=== PATIENT | male | born 1965 | race African-American/Black ===

== ENCOUNTER → 2016-07-13 | Outpatient (CLI) | payer BC ==
--- NOTE | 2016-07-13 15:38 | CR ---
EXAMINATION: Right shoulder HISTORY: Pain COMPARISON: None TECHNIQUE: 3 views FINDINGS/IMPRESSION: There is no acute osseous abnormality, dislocation, or fracture. Bone mineraliz ation and joint spaces appear normal.
== END ==
LOC: MW.CHFP 10:11
PROVIDERS: ATTEND Nurse Practitioner Family
DX: M25.511 Pain in right shoulder (principal)
CPT/HCPCS: 73030-26-RT; 73030-RT

== ENCOUNTER 2016-11-02 16:38 | Observation (INO) | payer BC ==
[2016-11-02] MEDS ORDERED: Sodium Chloride 0.9% 1,000 ML IV ONE ×3 (17:00→19:55)
[2016-11-02] MEDS ORDERED: Insulin Regular, Human 100 Units/ML 10 ML Vial IVPUSH ONE (17:01)
[2016-11-02] MEDS ORDERED: Aspirin 81 MG Tab.Chew PO ONE (17:25)
[2016-11-02] MEDS ORDERED: Sodium Chloride 0.9% 10 ML Syringe FLUSH PRN (19:18)
[2016-11-02] MEDS ORDERED: Sodium Chloride 0.9% 2.5 ML Syringe FLUSH PRN (19:18)
[2016-11-02] MEDS ORDERED: Acetaminophen 325 MG Tab PO PRN (19:18)
--- NOTE | 2016-11-02 20:39 | PCM.HP ---
H&P History of Present Illness - General Date of Service: 11/02/16 Admit Problem/Dx: Admission Diagnosis/Problem Admission Diagnosis/Problem Uncontrolled diabetes mellitus Source of Information: Patient History Limitations: Reports: No Limitations - History of Present Illness Initial Comments - Free Text/Narative: This is a 51-year-old male who is presenting secondary to dehydration and hyperglycemia and chest discomfort. Jonny works here at [facility] [employer] [facility] he was recently diagnosed 2 days ago with type 2 diabetes mellitus. He then was referred to a specialist who put Jonny on long-acting insulin 16 units at bedtime. Jonny noticed this morning that his blood sugar was still elevated despite his 16 units and called the diabetic nurse practitioner who told the patient that he will increase his long-acting insulin to 20 units. At the day. Her only had lunch and around 2 PM finish work. Went home with his coworkers, his coworkers noticed that he was driving a little erratic and felt that there was something wrong with Jonny. They brought him into the ER where it was found that he was severely dehydrated and had a initial blood glucose level of about 600. He was then also complaining of some arm discomfort and pain and there was a possible concern for an OR related event an EKG was done which did show some old possible changes for which cardiology was consulted who did see the patient and felt that there is nothing acute that needed to be done. From the standpoint of his elevated glucose of about 600 he was not acidotic. He received 6 units of Novolin in the ER along with 1 L bolus of normal saline. A CT in September was also ordered to rule out PE. He is denying presently any headaches any shortness of breath any nausea or vomiting any diarrhea or constipation. He is denying any present pain or any present chest discomfort. He is stating that he is quite thirsty and quite hungry at the moment. But does feel a lot better than when he initially presented to the ER. - Related Data Allergies/Adverse Reactions: Allergies Allergy/AdvReac Type Severity Reaction Status Date / Time No Known Allergies Allergy Verified 04/15/15 12:45 Home Medications: Home Meds atorvaSTATin Calcium [Atorvastatin Calcium] 10 mg PO DAILY 07/12/14 [History] Clopidogrel [Plavix] 75 mg PO DAILY #30 tablet 07/13/14 [Rx] Hydrochlorothiazide 25 mg PO DAILY #30 tablet 07/13/14 [Rx] Diltiazem HCl [Diltiazem 24Hr ER] 240 mg PO DAILY 09/19/14 [History] Ferrous Sulfate [Iron] 325 mg PO DAILY 09/19/14 [History] Lisinopril 1 tab PO DAILY 09/19/14 [History] metFORMIN [Glucophage] 500 mg PO BIDMEALS 09/23/14 [History] Past Medical History HEENT History: Reports: Impaired Vision Other HEENT History: wears glasses Cardiovascular History: Reports: Angina, High Cholesterol, Hypertension Respiratory History: Reports: Bronchitis, Recurrent Other Respiratory History: hx: bronchitis this year Gastrointestinal History: Reports: GERD Other Gastrointestinal History: Severe Gastric Reflux Other Genitourinary History: Severe Heartburn Neurological History: Reports: CVA Other Neuro History: Stroke with testing done 07/2014, pt denies any denies any residual problems Psychiatric History: Reports: Anxiety, Depression Endocrine/Metabolic History: Reports: Diabetes, Type II Other Endocrine/Metabolic History: Controls with Diet my diabetes - Past Surgical History GI Surgical History: Reports: Hernia, Inguinal Social & Family History - Family History Family Medical History: Noncontributory - Tobacco Use Smoking Status *Q: Never Smoker Second Hand Smoke Exposure: No - Caffeine Use Caffeine Use: Reports: Coffee - Alcohol Use Days Per Week of Alcohol Use: 0 - Recreational Drug Use Recreational Drug Use: No H&P Review of Systems - Review of Systems: Review Of Systems: ROS reveals no pertinent complaints other than HPI. Exam - Exam Exam: See Below - Vital Signs Vital Signs: Last Vital Signs Temp 36.8 C 11/02/16 20:00 Pulse 92 11/02/16 20:00 Resp 16 11/02/16 20:00 BP 143/85 H 11/02/16 20:00 Pulse Ox 97 11/02/16 20:00 Weight: 66.5 kg - Exam General: Alert, Oriented, Cooperative HEENT: Conjunctiva Clear, EACs Clear, EOMI, Hearing Intact. No: Mucosa Moist & [place] Neck: Supple, Trachea Midline Lungs: Clear to Auscultation, Normal Respiratory Effort Cardiovascular: Regular Rate, Regular Rhythm GI/Abdominal Exam: Normal Bowel Sounds, Soft, Non-Tender, No Organomegaly (Male) Exam: No: No Hernia Back Exam: Normal Inspection Extremities: Normal Inspection, Normal Range of Motion Skin: Warm, Dry Neurological: Cranial Nerves Intact Neuro Extensive - Mental Status: Alert, Oriented x3, Normal Mood/Affect, Normal Cognition Psychiatric: Alert, Normal Affect, Normal Mood - Patient Data Result Diagrams: 11/02/16 17:00 11/02/16 17:00 *Q Meaningful Use (ADM) - VTE *Q VTE Criteria *Q: - VTE Risk Assess *Q Each Risk Factor Represents 1 Point: None Total Score 1 Point Risk Factors: 0 Each Risk Factor Represents 3 Points: None Total Score 3 Point Risk Factors: 0 - Stroke *Q Stroke Criteria *Q: - AMI *Q AMI Criteria *Q: - Problem List (1) Dehydration SNOMED Code(s): 64884534 ICD Code: E86.0 - DEHYDRATION Status: Acute Priority: High Current Visit: Yes (2) Hyperglycemia due to type 2 diabetes mellitus SNOMED Code(s): 840421127996903, 728666638561878 ICD Code: E11.65 - TYPE 2 DIABETES MELLITUS WITH HYPERGLYCEMIA Status: Acute Priority: High Current Visit: Yes Problem List Initiated/Reviewed/Updated: Yes Orders Last 24hrs: Active Orders 24 hr Category Date Time Status Patient Status [ADT] Routine ADT 11/02/16 19:18 Active Ambulate [RC] PER UNIT ROUTINE Care 11/02/16 19:21 Active Blood Glucose Check, Bedside [RC] Q4HR Care 11/02/16 23:18 Active Cardiac Monitoring [RC] CONTINUOUS Care 11/02/16 19:19 Active Communication Order [RC] PER UNIT ROUTINE Care 11/02/16 19:18 Active Diabetes Education [RC] Click To Edit Care 11/02/16 19:23 Active Intake and Output [RC] QSHIFT Care 11/02/16 19:19 Active Oxygen Therapy [RC] PRN Care 11/02/16 19:18 Active Peripheral IV Care [RC] . DIRECTED Care 11/02/16 19:18 Active Up With Assistance [RC] ASDIRECTED Care 11/02/16 19:18 Active VTE/DVT Education [RC] PER UNIT ROUTINE Care 11/02/16 19:18 Active Vital Signs [RC] Q4H Care 11/02/16 19:18 Active Consult to Diabetic Nurse Specialist [CONS] Routine Cons 11/02/16 19:36 Active Consult to Glass Cutter [CONS] Routine Cons 11/02/16 19:36 Active Stat[employer] Diet [DIET] Diet 11/02/16 Breakfast Active CTA Chest W WO Contrast [Ang Chest] [CT] Stat Exams 11/02/16 17:59 Taken CBC WITH AUTO DIFF [HEME] AM Lab 11/03/16 05:11 Ordered COMPREHENSIVE METABOLIC PN,CMP [CHEM] AM Lab 11/03/16 05:11 Ordered TROPONIN I [CHEM] Q6H Lab 11/02/16 23:00 Ordered TROPONIN I [CHEM] Q6H Lab 11/03/16 05:00 Ordered Acetaminophen [Tylenol] Med 11/02/16 19:18 Active 650 mg PO Q4H PRN Diltiazem Med 11/03/16 09:00 Active 240 mg PO DAILY Enoxaparin [Lovenox] Med 11/03/16 09:00 Active 40 mg SUBCUT DAILY Hydrochlorothiazide Med 11/03/16 09:00 Active 25 mg PO DAILY Insulin Aspart [NovoLOG] Med 11/03/16 07:30 Active See Protocol SUBCUT TIDAC Insulin Glarg,Human.Rec.Analog [LantUS Solostar] Med 11/02/16 21:00 Active 20 units SUBCUT BEDTIME Sodium Chloride 0.9% [Normal Saline] 1,000 ml Med 11/02/16 19:55 Active IV DAILY Sodium Chloride 0.9% [Saline Flush] Med 11/02/16 19:18 Active 10 ml FLUSH ASDIRECTED PRN Sodium Chloride 0.9% [Saline Flush] Med 11/02/16 19:18 Active 2.5 ml FLUSH ASDIRECTED PRN Glucose Management Sub Q Reflex [OM.PC] Click To Edit Oth 11/02/16 19:18 Ordered Peripheral IV Insertion Adult [OM.PC] Routine Oth 11/02/16 19:18 Ordered Saline Lock Insert [OM.PC] Routine Oth 11/02/16 19:18 Ordered Resuscitation Status Routine Resus Stat 11/02/16 19:18 Ordered Medication Orders Acetaminophen (Tylenol) 650 mg PO Q4H PRN PRN Reason: Pain (Mild 1-3)/fever Enoxaparin Sodium (Lovenox) 40 mg SUBCUT DAILY LAUREL Hydrochlorothiazide (Hydrochlorothiazide) 25 mg PO DAILY LAUREL Sodium Chloride (Normal Saline) 1,000 mls @ 125 mls/hr IV DAILY ONE Stop: 11/03/16 02:57 Last Admin: 11/02/16 20:24 Dose: 125 mls/hr Insulin Aspart (Novolog) 0 unit SUBCUT TIDAC LAUREL PRN Reason: Protocol Insulin Glargine (Lantus Solostar) 20 units SUBCUT BEDTIME LAUREL Non-Formulary Medication (Diltiazem) 240 mg PO DAILY LAUREL Sodium Chloride (Saline Flush) 10 ml FLUSH ASDIRECTED PRN PRN Reason: Keep Vein Open Sodium Chloride (Saline Flush) 2.5 ml FLUSH ASDIRECTED PRN PRN Reason: Keep Vein Open Assessment/Plan Comment:: Assessment/plan #1. Dehydration with elevated blood glucose level above 600 likely secondary to new onset type 2 diabetes without acidosis Plan: Patient has received already a bolus of fluids in the ER along with Novolin. Patient will be put on long-acting Lantus 20 units at night along with a sliding scale moderate of short acting with meals. Patient will also be receiving normal saline at a rate of 125 mL per hour. Continue to watch the patient's blood sugar levels every 4 hours #2. Chest discomfort/arm pain with possible old EKG changes Plan: Patient has a CT angiogram ordered to rule out PE which we will continue to follow for the results as well patient will have his straps trended 3 first set of troponin is were negative. Patient has been seen by cardiology, who stated at this point in time there is nothing that requires immediate intervention. #3. Pseudohyponatremia Plan: We will just continue to follow the lab's as this patient's hyponatremia is likely just secondary to his high hyperglycemia.
[2016-11-02] MEDS ORDERED: Insulin Glargine,Human Rec. Analog 100 Units/ML 3 ML Pen SUBCUT SCH (21:00)
[2016-11-02] MEDS ORDERED: Insulin Aspart 100 Units/ML 3 ML Pen SUBCUT ONE (22:45)
[2016-11-03 05:51] LABS: CHLORIDE,CL 103 mmol/L (98-110); SODIUM,NA 137 mmol/L (136-146)
[2016-11-03] MEDS ORDERED: Sodium Chloride 0.9% 1,000 ML IV SCH (06:15)
[2016-11-03] MEDS: Insulin Aspart 100 Units/ML 3 ML Pen SUBCUT SCH ×3 (06:30→16:25)
--- NOTE | 2016-11-03 08:22 | CONS ---
DATE OF CONSULTATION: DATE OF : 1965 PRIMARY CARE PHYSICIAN: Ronald Mock M.D. REASON FOR CONSULTATION: Abnormal EKG. HISTORY OF PRESENT ILLNESS: This is a 51-year-old male with history of diabetes insulin dependent, hypertension, hyperlipidemia, history of a stroke. He presented to the hospital because of a sudden onset of shortness of breath at 3:00 [address] while [address]. He stated that he was feeling okay this morning. He still at work no problem with working. 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 He also denies chest pain. All of a sudden when he driving home, he started having shortness of breath. No coughing. No fever. He feels like weak as well. EKG did show possible SUSY and will be compared to the old EKG has not much changes actually. They are concerned about the Q-wave in V1 to V3. He had a stress test done in the 2011. At that time, his history seemed to be chest pain; however, the patient did not recall having a stress test at that time and what reason. PAST MEDICAL HISTORY: Including hypertension, dyslipidemia, history of a stroke, insulin-dependent diabetes. SOCIAL HISTORY: He denies smoking, drinking, or drug use. MEDICATIONS: Including diltiazem 240 once a day, lisinopril 30 mg once a day, Lipitor 10 mg once a day, Dyazide 25 mg once a day, Plavix 75 mg once a day for stroke. REVIEW OF SYSTEMS: Except indicated in the HPI, otherwise been negative for 12-point review of system. FAMILY HISTORY: No family history of CAD. PHYSICAL EXAMINATION: VITAL SIGNS: Blood pressure 143/85, heart rate of 104, respirations 16, temperature 36.8, O2 saturation 97% on room air; it was 93 as well, respiration rate is 16. HEENT: No pallor. No jaundice. No JVD. HEART: Normal S1, S2. No murmur. Tachycardia. LUNGS: Clear. No wheezing. ABDOMEN: Soft, nontender. Bowel sounds are present. No hepatosplenomegaly. EXTREMITIES: Legs, no edema. No JVD. LABORATORY INVESTIGATIONS: CBC showed WBC 7, hematocrit 37, hemoglobin 12, platelet 185. The BMP is still not available. Troponin was negative. EKG show possible Q-wave. He has an EKG done in April 2016 which show possible Q-wave in V1 and V2; however, the current EKG today show questioning Q-wave in V3 as well, but there was possible small R in front of QRS. I think that is not much changed of EKG from the previous EKG, and he also denies chest pain. He only complaining about shortness of breath. Definitely, PE needs to be ruled out and also definitely ACS also need to be ruled out as well regarding his diabetes. I will recommend to continue checking his troponin and also check his echocardiogram as well and probably, he would need a stress test as an outpatient. EDE / IZA /[id number]
[2016-11-03] MEDS ORDERED: Hydrochlorothiazide 25 MG Tab PO SCH (09:00)
[2016-11-03] MEDS ORDERED: Non-Formulary Medication 1 Each (Diltiazem 240 MG) PO SCH (09:00)
[2016-11-03] MEDS ORDERED: Enoxaparin 40 MG/0.4 ML Syringe SUBCUT SCH (09:00)
[2016-11-03] MEDS ORDERED: Diltiazem 120 MG Cap.CD PO SCH ×2 (10:33→11:00)
--- NOTE | 2016-11-03 10:46 | CR ---
EXAM DATE: 11/02/16 PATIENT'S AGE: 51 Patient: EUGENE NOVOA Facility: [place], [place] Site . Site : 1965 Study: XRay Chest [id number]/1/2017 5:43:41 PM Ordering Physician: Jorge Raymond Final Report: INDICATIONS: Shortness of breath. TECHNIQUE: Chest 1 view. COMPARISON: None FINDINGS: No pneumothorax, pleural effusion or airspace consolidation. No pulmonary edema. Borderline cardiomegaly. Mediastinal contours are within normal limits. Upper abdomen and osseous structures show no acute abnormality. IMPRESSION: No evidence of acute cardiopulmonary disease. Dictated by Feliberto Montaño MD @ 11/02/2016 6:47:54 PM Dictated by: Feliberto Montaño MD @ 11/02/2016 18:48:03 (Electronic Signature) Report Signed by Proxy. [facility]
--- NOTE | 2016-11-03 10:49 | CT ---
EXAM DATE: 11/02/16 PATIENT'S AGE: 51 Patient: EUGENE NOVOA Facility: [place], [place] Site . Site : 1965 Study: CT Chest Angio [id number] 6:45:28 PM Ordering Physician: Jorge Raymond Final Report: INDICATION: DYSPNEA TECHNIQUE: CT chest pulmonary angiogram acquired with IV contrast COMPARISON: August 31, 2012. FINDINGS: Cardiovascular structures: Normal vascular enhancement of the pulmonary arteries , no sign of pulmonary embolism. Cardiomegaly. No sign of aneurysm or dissection in the thoracic aorta. Mediastinum and mone: No mass or adenopathy. Lungs: No focal consolidation, pleural effusion, or pneumothorax. The previously noted nodules in the right lung have resolved. Stable nodular density along the left major fissure seen on series 402, image 41. Calcified granuloma within the superior segment of the left lower lobe. Mild atelectasis. Chest wall and axilla: No mass or adenopathy. Bones: Degenerative changes. Upper abdomen: Hiatal hernia. IMPRESSION: 1. No evidence of pulmonary embolism. 2. No acute cardiopulmonary disease. Dictated by Kerwin Conklin MD @ 11/02/2016 7:23:27 PM Dictated by: Kerwin Conklin MD @ 11/02/2016 19:25:05 (Electronic Signature) Report Signed by Proxy. [facility]
[2016-11-03 15:51] VITALS: BP 144/87
[2016-11-03] MEDS ORDERED: Insulin Aspart 100 Units/ML 3 ML Pen SUBCUT ONE (22:22)
--- NOTE | 2016-11-04 18:28 | PCM.DCSUM1 ---
Discharge Summary - Hospital Course Free Text/Narrative:: Discharge summary Admitting diagnoses 1. Dehydration, hyperglycemia secondary to new onset diabetes type 2 2. Chest pain/arm discomfort rule out cardiac symptoms secondary to old old EKG changes 3. Pseudohyponatremia secondary to hyperglycemia Discharge diagnosis 1. New onset diabetes mellitus type 2 with dehydration and hypoglycemia acutely now resolved 2. Chest pain/arm discomfort now resolved no cardiac symptoms observed 3. Pseudohyponatremia resolved secondary to resolution of hyperglycemia Consultations: Dr. Peters , cardiology Procedures: None Hospitalization course: Patient was admitted to general floor noted to have hyperglycemia that was now improving secondary to bolus insulin dose given to the patient in the ER along with bolus IV fluids. Patient was then placed on 20 units of long-acting insulin with a moderate sliding scale for which she received 3 units overnight patient was also put on IV fluids for hydration. By the morning the patient's resident hyperglycemia have resolved. Patient was also seen by cardiology for his old ECG changes which cardiology set at this point in time did not require any further management except for outpatient follow-up. Patient was then seen by dog track kennel manager along with the dietitian as well as an echocardiogram done inpatient. Disposition on discharge: Home Condition on discharge: Patient was no longer dehydrated his hyperglycemia had resolved he had been given good diabetic education as far as what to eat what not to eat, how to take his insulin dose, how to use a moderate sliding scale for insulin, and his medication for his diabetes management. Follow-up instructions: Patient is to follow-up with Dr. Coulter at an outpatient setting, as well as follow-up with cardiology in the outpatient setting Medications on discharge: #1. Long-acting insulin 20 units at night #2. Short acting insulin on a moderate sliding scale dosage Continuation of all the medications of home Discharge instructions: Patient was told that if he had any further hypoglycemia episodes any episodes of dehydration, any chest pain, any dizziness nausea or vomiting, or any episodes of fainting he is to either call his primary care physician right away or come to the ER right away. - Discharge Data Discharge Date: 11/03/16 Discharge Disposition: Home, Self-Care 01 Condition: Good - Discharge Diagnosis/Problem(s) (1) Dehydration SNOMED Code(s): 74242552 ICD Code: E86.0 - DEHYDRATION Status: Acute Priority: High (2) Hyperglycemia due to type 2 diabetes mellitus SNOMED Code(s): 204749487139317, 121007159876413 ICD Code: E11.65 - TYPE 2 DIABETES MELLITUS WITH HYPERGLYCEMIA Status: Acute Priority: High (3) Chest pain SNOMED Code(s): 32023016 ICD Code: R07.9 - CHEST PAIN, UNSPECIFIED Status: Acute Priority: High Qualifiers: Chest pain type: unspecified Qualified Code(s): R07.9 - Chest pain, unspecified (4) Q waves suggestive of previous myocardial infarction SNOMED Code(s): 971767619 ICD Code: R94.31 - ABNORMAL ELECTROCARDIOGRAM [ECG] [EKG] Status: Acute Priority: High - Patient Summary/Data Consults: Consultations 11/02/16 19:36 Consult to Diabetic Nurse Specialist [CONS] Routine Consult to Tube Turner [CONS] Routine - Patient Instructions Diet: Diabetic Diet Activity: As Tolerated Driving: May Drive Today Showering/Bathing: May Shower Notify Provider of: Fever, Increased Pain, Swelling and Redness, Nausea and/or Vomiting - Discharge Plan Prescriptions/Med Rec: Insulin Aspart [NovoLOG] 0 unit SUBCUT TIDAC #1 pen Insulin Glarg,Human.Rec.Analog [LantUS Solostar] 20 units SUBCUT BEDTIME #1 pen Home Medications: Home Meds atorvaSTATin Calcium [Atorvastatin Calcium] 10 mg PO DAILY 07/12/14 [History] Clopidogrel [Plavix] 75 mg PO DAILY #30 tablet 07/13/14 [Rx] Hydrochlorothiazide 25 mg PO DAILY #30 tablet 07/13/14 [Rx] Diltiazem HCl [Diltiazem 24Hr ER] 240 mg PO DAILY 09/19/14 [History] Lisinopril 1 tab PO DAILY 09/19/14 [History] metFORMIN [Glucophage] 500 mg PO BIDMEALS 09/23/14 [History] Insulin Aspart [NovoLOG] 0 unit SUBCUT TIDAC #1 pen 11/03/16 [Rx] Insulin Glarg,Human.Rec.Analog [LantUS Solostar] 20 units SUBCUT BEDTIME #1 pen 11/03/16 [Rx] Patient Handouts: Type 2 Diabetes Mellitus, Adult, Dehydration, Adult, Easy-to- Read, Hyperglycemia, [id number] Referrals: Mohit Peters MD [Physician] - (Please call Dr. Peters's clinic tomorrow at [phone] to schedule post-hospital follow up appointment. ) - Discharge Summary/Plan Comment DC Time >30 min.: No - Patient Data Vitals - Most Recent: Last Vital Signs Temp 36.1 C 11/03/16 15:51 Pulse 82 11/03/16 15:51 Resp 20 11/03/16 15:51 BP 144/87 H 11/03/16 15:51 Pulse Ox 97 11/03/16 15:51 Weight - Most Recent: 66.5 kg Med Orders - Current: Current Medications Discontinued Medications Acetaminophen (Tylenol) 650 mg PO Q4H PRN PRN Reason: Pain (Mild 1-3)/fever Aspirin (Aspirin) 324 mg PO ONETIME ONE Stop: 11/02/16 17:26 Last Admin: 11/02/16 17:33 Dose: 324 mg Diltiazem HCl (Cardizem Cd) 240 mg PO DAILY [facility] Diltiazem HCl (Cardizem Cd) 240 mg PO DAILY [facility] Last Admin: 11/03/16 11:01 Dose: 240 mg Enoxaparin Sodium (Lovenox) 40 mg SUBCUT DAILY [facility] Last Admin: 11/03/16 09:14 Dose: 40 mg Hydrochlorothiazide (Hydrochlorothiazide) 25 mg PO DAILY [facility] Last Admin: 11/03/16 09:15 Dose: 25 mg Sodium Chloride (Normal Saline) 1,000 mls @ 999 mls/hr IV .Bolus ONE Stop: 11/02/16 18:00 Last Admin: 11/02/16 17:09 Dose: 999 mls/hr Sodium Chloride (Normal Saline) 1,000 mls @ 999 mls/hr IV .Bolus ONE Stop: 11/02/16 19:58 Last Admin: 11/02/16 19:13 Dose: 999 mls/hr Sodium Chloride (Normal Saline) 1,000 mls @ 125 mls/hr IV DAILY ONE Stop: 11/03/16 02:57 Last Admin: 11/02/16 20:24 Dose: 125 mls/hr Sodium Chloride (Normal Saline) 1,000 mls @ 125 mls/hr IV ASDIRECTED [facility] Last Admin: 11/03/16 06:23 Dose: 125 mls/hr Insulin Aspart (Novolog) 0 unit SUBCUT TIDAC [facility] PRN Reason: Protocol Last Admin: 11/03/16 16:25 Dose: 4 units Insulin Aspart (Novolog) 3 unit SUBCUT ONETIME ONE Stop: 11/03/16 22:23 Insulin Aspart (Novolog) 3 unit SUBCUT ONETIME ONE Stop: 11/02/16 22:46 Last Admin: 11/02/16 22:44 Dose: 3 units Insulin Glargine (Lantus Solostar) 20 units SUBCUT BEDTIME [facility] Last Admin: 11/02/16 21:27 Dose: 20 units Insulin Human Regular (Novolin R) 6 unit IVPUSH ONETIME ONE PRN Reason: Protocol Stop: 11/02/16 17:02 Last Admin: 11/02/16 17:09 Dose: 6 units Non-Formulary Medication (Diltiazem) 240 mg PO DAILY [facility] Last Admin: 11/03/16 11:02 Dose: Not Given Sodium Chloride (Saline Flush) 10 ml FLUSH ASDIRECTED PRN PRN Reason: Keep Vein Open Sodium Chloride (Saline Flush) 2.5 ml FLUSH ASDIRECTED PRN PRN Reason: Keep Vein Open *Q Meaningful Use (DIS) - VTE *Q VTE Criteria *Q: - Stroke *Q Stroke Criteria *Q: - AMI *Q AMI Criteria *Q:
--- NOTE | 2016-11-08 17:13 | ECHO ---
EXAM DATE: 11/02/16 PATIENT'S AGE: 51 The echocardiogram report can be seen in this patient's EMR (Electronic Medical Record) in the Reports section. The report has also been scanned into PACS. JOY
== END 2016-11-03 18:30 | disposition home or self-care (01) ==
LOC: MW.ED 16:38 → INTOOBSV 17:57 → MW.MS 17:57
PROVIDERS: ADMIT Internal Medicine; ATTEND Internal Medicine
DX: E86.0 Dehydration (principal); E11.65 Type 2 diabetes mellitus with hyperglycemia; E87.1 Hypo-osmolality and hyponatremia; R07.9 Chest pain, unspecified; R94.31 Abnormal electrocardiogram [ECG] [EKG]; E78.00 Pure hypercholesterolemia, unspecified; I10 Essential (primary) hypertension; K21.9 Gastro-esophageal reflux disease without esophagitis; F41.9 Anxiety disorder, unspecified; F32.9 Major depressive disorder, single episode, unspecified; E78.5 Hyperlipidemia, unspecified; Z86.73 Personal history of transient ischemic attack (TIA), and cerebral infarction without residual deficits; Z79.02 Long term (current) use of antithrombotics/antiplatelets; Z79.4 Long term (current) use of insulin; Z79.84 Long term (current) use of oral hypoglycemic drugs; Z79.899 Other long term (current) drug therapy; Z98.890 Other specified postprocedural states
CPT/HCPCS: 36415; 71010; 71275; 80053; 81001; 82962; 84484; 85025; 93005; 93306; 96360; 96361; 96372; 99285; A9270; G0378; J1650; J1815; J7040; 96374